=== PATIENT | female | born 2000 | race Two or more races ===

== ENCOUNTER 2020-01-29 12:09 | Emergency (ER) | payer MEDICAID ==
--- NOTE | 2020-01-29 12:49 | EDM.PDOC ---
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 The patient states her LMP was December 22, 2019. Yesterday she took 3 tests and they were all positive. She has been sexually active not on control. Today she would like confirmation of . She also reports that she has been having "period cramping" more intense than usual off and on. No vaginal bleeding, pelvic pain or abdominal pain. Mild nausea but no vomiting. No fever, dysuria. She is otherwise healthy without chronic medical problems. She has never been before. pelvic Pain Score (Numeric/FACES): 7 - Related Data Allergies Allergy/AdvReac Type Severity Reaction Status Date / Time No Known Allergies Allergy Verified 01/29/20 12:24 Home Meds: Home Meds . [No Known Home Meds] 01/29/20 [History] Past Medical History - Past Health History Medical/Surgical History: Denies Medical/Surgical History - Infectious Disease History Infectious Disease History: Reports: None Social & Family History - Family History Family Medical History: Noncontributory - Tobacco Use Tobacco Use Status *Q: Never Tobacco User - Recreational Drug Use Recreational Drug Use: No ED ROS GENERAL - Review of Systems Review Of Systems: Comprehensive ROS is negative, except as noted in HPI. ED EXAM - Physical Exam Exam: See Below Exam Limited By: No Limitations General Appearance: Alert, No Apparent Distress Ears: Normal External Exam Nose: Normal Inspection Throat/Mouth: Normal Inspection Head: Atraumatic, Normocephalic Neck: Normal Inspection Respiratory/Chest: No Respiratory Distress, Lungs Clear, Normal Breath Sounds Cardiovascular: Normal Peripheral Pulses, Regular Rate, Rhythm GI/Abdominal Exam: Normal Bowel Sounds, Soft, No Distention, Tender (Mild in pelvic and epigastric area) Course - Vital Signs Last Recorded V/S: Last Vital Signs Temp Pulse 122 H 01/29/20 12:25 Resp 18 01/29/20 12:25 BP 129/74 01/29/20 12:25 Pulse Ox 100 01/29/20 12:25 - Orders/Labs/Meds Labs: Laboratory Tests 01/29/20 01/29/20 Range/Units 12:43 12:43 Urine Color YELLOW Urine Appearance CLEAR Urine pH 8.0 (5.0-8.0) Ur Specific [place] 1.020 (1.001-1.035) Urine Protein NEGATIVE (NEGATIVE) mg/dL Urine Glucose (UA) NEGATIVE (NEGATIVE) mg/dL Urine Ketones NEGATIVE (NEGATIVE) mg/dL Urine Occult Blood NEGATIVE (NEGATIVE) Urine Nitrite NEGATIVE (NEGATIVE) Urine Bilirubin NEGATIVE (NEGATIVE) Urine Urobilinogen 0.2 (<2.0) EU/dL Ur Leukocyte Esterase NEGATIVE (NEGATIVE) Urine RBC 0-2 (0-2/HPF) Urine WBC 0-2 (0-5/HPF) Ur Epithelial Cells OCCASIONAL (NONE-FEW) Urine Bacteria RARE (NEGATIVE) Urine HCG, Qual POSITIVE (NEGATIVE) - Re-Assessments/Exams Free Text/Narrative Re-Assessment/Exam: 01/29/20 13:27 Now, the patient states that she is not having cramping all the time just once in a while she gets a cramp. Departure - Departure Time of Disposition: 13:28 Disposition: Home, Self-Care 01 Condition: Good Clinical Impression: confirmed by positive urine test - Discharge Information Referrals: PCP,None [Primary Care Provider] - [facility] [Outside] Didier Diego MD [Physician] - Forms: ED Department Discharge Additional Instructions: The following information is given to patients seen in the emergency department who are being discharged to home. This information is to outline your options for follow-up care. We provide all patients seen in our emergency department with a follow-up referral. The need for follow-up, as well as the timing and circumstances, are variable depending upon the specifics of your emergency department visit. If you don't have a primary care physician on staff, we will provide you with a referral. We always advise you to contact your personal physician following an emergency department visit to inform them of the circumstance of the visit and for follow-up with them and/or the need for any referrals to a consulting specialist. The emergency department will also refer you to a specialist when appropriate. This referral assures that you have the opportunity for follow-up care with a specialist. All of these measure are taken in an effort to provide you with optimal care, which includes your follow-up. Under all circumstances we always encourage you to contact your private physician who remains a resource for coordinating your care. When calling for follow-up care, please make the office aware that this follow-up is from your recent emergency room visit. If for any reason you are refused follow-up, please contact the [facility] Emergency Department at and asked to speak to the emergency department charge nurse. 1. If you experience vaginal bleeding along with pelvic pain, report to the emergency room promptly 2. Make an appointment for care with one of the providers listed above. Sepsis Event Note (ED) - Evaluation Sepsis Screening Result: No Definite Risk - Focused Exam Vital Signs: Vital Signs Pulse Resp BP Pulse Ox 01/29/20 12:25 122 H 18 129/74 100
== END 2020-01-29 13:45 | disposition home or self-care (01) ==
LOC: MW.ED 12:09
DX: Z32.01 Encounter for pregnancy test, result positive (principal)
CPT/HCPCS: 81001; 81025; 99282; 99284

== ENCOUNTER 2020-09-22 13:24 | Inpatient (IN) | payer MEDICAID ==
[2020-09-22] MEDS ORDERED: Sodium Chloride 0.9% 10 ML Syringe FLUSH PRN (14:22)
[2020-09-22] MEDS ORDERED: Nalbuphine 10 MG/1 ML Vial IVPUSH PRN (14:22)
[2020-09-22] MEDS ORDERED: Tranexamic Acid 1,000 MG in Sodium Chloride 0.9% 100 ML IV PRN (14:22)
[2020-09-22] MEDS ORDERED: Sodium Chloride 0.9% 10 ML SDV IV PRN (14:22)
[2020-09-22] MEDS ORDERED: Lidocaine 1% 50 ML MDV INJECT PRN (14:22)
[2020-09-22] MEDS ORDERED: Methylergonovine 0.2 MG/1 ML Amp IM PRN (14:22)
[2020-09-22] MEDS ORDERED: Ampicillin 2 GM in Sodium Chloride 0.9% 100 ML IV ONE (14:22)
[2020-09-22] MEDS ORDERED: Misoprostol 200 MCG Tab PO PRN (14:22)
[2020-09-22] MEDS ORDERED: Sodium Chloride 0.9% 2.5 ML Syringe FLUSH PRN (14:22)
[2020-09-22] MEDS ORDERED: Carboprost Tromethamine 250 MCG/1 ML Amp IM PRN (14:22)
[2020-09-22] MEDS ORDERED: Butorphanol 1 MG/ML SDV IVPUSH PRN (14:22)
[2020-09-22] MEDS ORDERED: Water For Irrigation,Sterile 1,000 ML Container IRR PRN (14:22)
[2020-09-22] MEDS ORDERED: Oxytocin/0.9 % Sodium Chloride 30 UNIT/500 ML BAG IV SCH (14:30)
[2020-09-22] MEDS: Lactated Ringers 1,000 ML IV SCH ×2 (14:45→17:31)
[2020-09-22] MEDS ORDERED: Ampicillin 2 GM Vial ONE (14:49)
[2020-09-22] MEDS ORDERED: fentaNYL 100 MCG/2 ML SDV ONE (15:55)
[2020-09-22] MEDS ORDERED: Ropivacaine HCl/PF 200 ML ONE (15:55)
--- NOTE | 2020-09-22 16:19 | PCM.PREANE ---
Preanesthetic Assessment - Anesthesia/Transfusion/Family Hx Anesthesia History: No Prior Anesthesia Family History of Anesthesia Reaction: No - Physical Assessment NPO Status Date: 09/22/20 NPO Status Time: 11:00 Height: 1.61 m Weight: 58.06 kg ASA Class: 2 - Lab Values: Laboratory Last Values WBC 14.31 K/uL (4.0-11.0) H 09/22/20 14:30 RBC 4.18 M/uL (4.30-5.90) L 09/22/20 14:30 Hgb 12.4 g/dL (12.0-16.0) 09/22/20 14:30 Hct 37.0 % (36.0-46.0) 09/22/20 14:30 MCV 88.5 fL (80.0-98.0) 09/22/20 14:30 MCH 29.7 pg (27.0-32.0) 09/22/20 14:30 MCHC 33.5 g/dL (31.0-37.0) 09/22/20 14:30 RDW Std Deviation 44.3 fl (28.0-62.0) 09/22/20 14:30 RDW Coeff of Abner 14 % (11.0-15.0) 09/22/20 14:30 Plt Count 315 K/uL (150-400) 09/22/20 14:30 MPV 10.60 fL (7.40-12.00) 09/22/20 14:30 Nucleated RBC % 0.0 /100WBC 09/22/20 14:30 Nucleated RBCs # 0 K/uL 09/22/20 14:30 SARS-CoV-2 RNA (MARYLU) NEGATIVE (NEGATIVE) 09/22/20 14:30 - Allergies Allergies/Adverse Reactions: Allergies Allergy/AdvReac Type Severity Reaction Status Date / Time No Known Allergies Allergy Verified 07/03/20 09:14 - Acknowledgements Anesthesia Type Planned: Epidural Pt an Appropriate Candidate for the Planned Anesthesia: Yes Alternatives and Risks of Anesthesia Discussed w Pt/Guardian: Yes Pt/Guardian Understands and Agrees with Anesthesia Plan: Yes PreAnesthesia Questionnaire - Past Health History Medical/Surgical History: Denies 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 [No Known Home Meds] 01/29/20 [History] Pnv No.95/Ferrous Fum/Folic AC [ Multivitamin Tablet] 1 each PO DAILY 07/02/20 [History] - CURRENT (IN HOUSE) MEDS Current Meds: Current Medications Butorphanol Tartrate (Butorphanol 1 Mg/Ml Sdv) 1 mg IVPUSH Q1H PRN PRN Reason: Pain (severe 7-10) Carboprost Tromethamine (Carboprost Tromethamine 250 Mcg/1 Ml Amp) 250 mcg IM ASDIRECTED PRN PRN Reason: Post Hemorrhage Oxytocin/Sodium Chloride (Oxytocin 30 Unit/500 Ml-Ns) 30 unit in 500 mls @ 500 mls/hr IV TITRATE TRISHA Tranexamic Acid 1,000 mg/ (Sodium Chloride) 110 mls @ 660 mls/hr IV ONETIME PRN PRN Reason: Bleeding Lactated Ringer's (Ringers, Lactated) 1,000 mls @ 150 mls/hr IV ASDIRECTED [facility] Last Infusion: 09/22/20 15:35 Dose: 999 mls/hr Documented by: Lidocaine HCl (Lidocaine 1% 50 Ml Mdv) 50 ml INJECT ONETIME PRN PRN Reason: Laceration repair Methylergonovine Maleate (Methylergonovine 0.2 Mg/1 Ml Amp) 0.2 mg IM ASDIRECTED PRN PRN Reason: Post Hemorrhage Misoprostol (Misoprostol 200 Mcg Tab) 200 mcg PO ONETIME PRN PRN Reason: Post Hemorrhage Nalbuphine HCl (Nalbuphine 10 Mg/1 Ml Vial) 10 mg IVPUSH Q1H PRN PRN Reason: Pain (severe 7-10) Sodium Chloride (Sodium Chloride 0.9% 10 Ml Syringe) 10 ml FLUSH ASDIRECTED PRN PRN Reason: Keep Vein Open Sodium Chloride (Sodium Chloride 0.9% 2.5 Ml Syringe) 2.5 ml FLUSH ASDIRECTED PRN PRN Reason: Keep Vein Open Sodium Chloride (Sodium Chloride 0.9% 10 Ml Sdv) 10 ml IV ASDIRECTED PRN PRN Reason: IV Use Sterile Water (Water For Irrigation,Sterile 1,000 Ml Container) 1,000 ml IRR ASDIRECTED PRN PRN Reason: delivery Discontinued Medications Ampicillin Sodium (Ampicillin 2 Gm Vial) Confirm Administered Dose 2 gm .ROUTE .STK-MED ONE Stop: 09/22/20 14:50 Fentanyl (Fentanyl 100 Mcg/2 Ml Sdv) Confirm Administered Dose 200 mcg .ROUTE .STK-MED ONE Stop: 09/22/20 15:56 Ampicillin Sodium 2 gm/ Sodium (Chloride) 100 mls @ 200 mls/hr IV ONETIME ONE Stop: 09/22/20 14:51 Last Admin: 09/22/20 14:50 Dose: 200 mls/hr Documented by: Ropivacaine (Naropin 0.2%) Confirm Administered Dose 200 mls @ as directed .ROUTE .STK-MED ONE Stop: 09/22/20 15:56
--- NOTE | 2020-09-22 16:23 | PCM.PRNOTE ---
- Free Text/Narrative Note: Anes Note Patient requests epidural fo L&D. Sitting position. Level L3-L4 midline approach. Sterile technique. Chloaprep scrub to lumbar area. Sterile fenestrated drape applied. Epidural space easily achieved single attempt with ease using CANDELARIA technique. CANDELARIA at 3 cm. Cah threaded 5 cm with ease. Cath secured a t skin using sterile clear adhesive dressing. 1610 Test 3 cc 1.5% lido with epi negative. 1614 Load 10 cc 0.2% ropiviciane with 1 mcg cc fentanyl in slow divided doses. 1617 Pump started with 190 cc same solution. Rate is 8 cc hr with 6 cc q 20 min prn bolus. Jimmy well. Time with patient [id number] Frank Kovacs CRNA
[2020-09-22] MEDS ORDERED: Ampicillin 1 GM in Sodium Chloride 0.9% 50 ML IV SCH (19:00)
[2020-09-22] MEDS ORDERED: Docusate Sodium 100 MG Cap PO PRN (20:42)
[2020-09-22] MEDS ORDERED: Witch Hazel Medicated Pads 40/Jar TOP PRN (20:42)
[2020-09-22] MEDS ORDERED: Ibuprofen 400 MG Tab PO PRN (20:42)
[2020-09-22] MEDS ORDERED: Acetaminophen 500 MG Tab PO PRN ×2 (20:42)
[2020-09-22] MEDS ORDERED: Lanolin 100% Cream 7 GM Tube TOP PRN (20:42)
[2020-09-22] MEDS ORDERED: Benzocaine/Menthol 20%-0.5% Spray 78 GM Cannister TOP PRN (20:42)
[2020-09-22] MEDS ORDERED: Bisacodyl 10 MG Supp RECTAL PRN (20:42)
[2020-09-22] MEDS ORDERED: oxyCODONE 5 MG Tab PO PRN (20:42)
--- NOTE | 2020-09-22 20:48 | PCM.DEL ---
L & D Note - General Info Date of Service: 09/22/20 - Delivery Note Delivery Outcome: Livebirth Infant Delivery Method: Spontaneous Vaginal Delivery-Single Presentation: Left Occiput Anterior (VALERIE) Nuchal Cord: None Anesthesia Type: Epidural Amniotic Fluid Description: Clear Episiotomy Type: None Laceration: Labial Suture type: Vicryl Suture size: 3-0 Placenta: Intact Cord: 3 Vessels Estimated Blood Loss: 300 Resuscitation Needed: No Score 1 min: 9 Score 5 min: 9 Delivery Comments (Free Text/Narrative):: Live male delivered at 2003 , 9/9 weight pending - General Info Date of Service: 09/22/20 - Patient Data Weight - Most Recent: 58.06 kg Lab Results Last 24 Hours: Laboratory Results - last 24 hr 09/22/20 09/22/20 09/22/20 Range/Units 14:30 14:30 14:30 WBC 14.31 H (4.0-11.0) K/uL RBC 4.18 L (4.30-5.90) M/uL Hgb 12.4 (12.0-16.0) g/dL Hct 37.0 (36.0-46.0) % MCV 88.5 (80.0-98.0) fL MCH 29.7 (27.0-32.0) pg MCHC 33.5 (31.0-37.0) g/dL RDW Std Deviation 44.3 (28.0-62.0) fl RDW Coeff of Abner 14 (11.0-15.0) % Plt Count 315 (150-400) K/uL MPV 10.60 (7.40-12.00) fL Nucleated RBC % 0.0 /100WBC Nucleated RBCs # 0 K/uL SARS-CoV-2 RNA (MARYLU) NEGATIVE (NEGATIVE) Blood Type O NEGATIVE Antibody Screen POSITIVE Antibody Identification Anti-D Med Orders - Current: Current Medications Butorphanol Tartrate (Butorphanol 1 Mg/Ml Sdv) 1 mg IVPUSH Q1H PRN PRN Reason: Pain (severe 7-10) Carboprost Tromethamine (Carboprost Tromethamine 250 Mcg/1 Ml Amp) 250 mcg IM ASDIRECTED PRN PRN Reason: Post Hemorrhage Oxytocin/Sodium Chloride (Oxytocin 30 Unit/500 Ml-Ns) 30 unit in 500 mls @ 500 mls/hr IV TITRATE [facility] Last Admin: 09/22/20 20:05 Dose: 500 mls/hr Documented by: Lactated Ringer's (Ringers, Lactated) 1,000 mls @ 150 mls/hr IV ASDIRECTED [facility] Last Infusion: 09/22/20 18:00 Dose: 150 mls/hr Documented by: Lidocaine HCl (Lidocaine 1% 50 Ml Mdv) 50 ml INJECT ONETIME PRN PRN Reason: Laceration repair Sodium Chloride (Sodium Chloride 0.9% 10 Ml Syringe) 10 ml FLUSH ASDIRECTED PRN PRN Reason: Keep Vein Open Sodium Chloride (Sodium Chloride 0.9% 2.5 Ml Syringe) 2.5 ml FLUSH ASDIRECTED PRN PRN Reason: Keep Vein Open Sodium Chloride (Sodium Chloride 0.9% 10 Ml Sdv) 10 ml IV ASDIRECTED PRN PRN Reason: IV Use Sterile Water (Water For Irrigation,Sterile 1,000 Ml Container) 1,000 ml IRR ASDIRECTED PRN PRN Reason: delivery Discontinued Medications Ampicillin Sodium (Ampicillin 2 Gm Vial) Confirm Administered Dose 2 gm .ROUTE .STK-MED ONE Stop: 09/22/20 14:50 Fentanyl (Fentanyl 100 Mcg/2 Ml Sdv) Confirm Administered Dose 200 mcg .ROUTE .STK-MED ONE Stop: 09/22/20 15:56 Tranexamic Acid 1,000 mg/ (Sodium Chloride) 110 mls @ 660 mls/hr IV ONETIME PRN PRN Reason: Bleeding Ampicillin Sodium 2 gm/ Sodium (Chloride) 100 mls @ 200 mls/hr IV ONETIME ONE Stop: 09/22/20 14:51 Last Admin: 09/22/20 14:50 Dose: 200 mls/hr Documented by: Ropivacaine (Naropin 0.2%) Confirm Administered Dose 200 mls @ as directed .ROUTE .STK-MED ONE Stop: 09/22/20 15:56 Ampicillin Sodium 1 gm/ Sodium (Chloride) 50 mls @ 100 mls/hr IV Q4H [facility] Last Admin: 09/22/20 18:52 Dose: 100 mls/hr Documented by: Methylergonovine Maleate (Methylergonovine 0.2 Mg/1 Ml Amp) 0.2 mg IM ASDIRECTED PRN PRN Reason: Post Hemorrhage Misoprostol (Misoprostol 200 Mcg Tab) 200 mcg PO ONETIME PRN PRN Reason: Post Hemorrhage Nalbuphine HCl (Nalbuphine 10 Mg/1 Ml Vial) 10 mg IVPUSH Q1H PRN PRN Reason: Pain (severe 7-10) - Problem List & Annotations (1) Vaginal delivery SNOMED Code(s): 690839051 Code(s): O80 - ENCOUNTER FOR FULL-TERM UNCOMPLICATED DELIVERY Status: Acute Current Visit: Yes - Problem List Review Problem List Initiated/Reviewed/Updated: Yes - My Orders Last 24 Hours: My Active Orders 09/22/20 14:22 Patient Status [ADT] Routine May Shower [RC] ASDIRECTED Notify Provider [RC] PRN Up ad Juliana [RC] ASDIRECTED Vaginal Exam [RC] PRN Vital Signs [RC] PER UNIT ROUTINE Butorphanol [Stadol] 1 mg IVPUSH Q1H PRN Carboprost Tromethamine [Hemabate DS] 250 mcg IM ASDIRECTED PRN Lidocaine 1% [Xylocaine 1%] 50 ml INJECT ONETIME PRN Sodium Chloride 0.9% [Normal Saline] 10 ml IV ASDIRECTED PRN Sodium Chloride 0.9% [Saline Flush] 10 ml FLUSH ASDIRECTED PRN Sodium Chloride 0.9% [Saline Flush] 2.5 ml FLUSH ASDIRECTED PRN Water For Irrigation,Sterile [Sterile Water for Irrigation] 1,000 ml IRR ASDIRECTED PRN Peripheral IV Insertion Adult [OM.PC] Routine 09/22/20 14:30 RPR (SYPHILIS SERO) W/ RFLX [REF] Routine Lactated Ringers [Ringers, Lactated] 1,000 ml IV ASDIRECTED Oxytocin/0.9 % Sodium Chloride [Oxytocin 30 Unit/500 ML-NS] 30 unit in 500 ml IV TITRATE 09/22/20 20:42 Patient Status [ADT] Routine May Shower [RC] ASDIRECTED Up ad Juliana [RC] ASDIRECTED Vital Signs [RC] PER UNIT ROUTINE RHIG WORKUP, [BBK] Routine Acetaminophen [Tylenol Extra Strength] 1,000 mg PO Q4H PRN Acetaminophen [Tylenol Extra Strength] 500 mg PO Q4H PRN Benzocaine/Menthol [Dermoplast Pain Relief 20%-0.5% [place]] 78 gm TOP ASDIRECTED PRN Docusate Sodium [Colace] 100 mg PO Q12H PRN Ibuprofen [Motrin] 400 mg PO Q4H PRN Ibuprofen [Motrin] 800 mg PO Q6H PRN Lanolin [Lansinoh HPA] See Dose Instructions TOP ASDIRECTED PRN bisacodyL [Dulcolax] 10 mg RECTAL ONETIME PRN oxyCODONE 5 mg PO Q2H PRN witch Azul [Tucks] 1 pad TOP ASDIRECTED PRN Assess Lochia [WOMSER] Per Unit Routine Assess Uterine Involution [WOMSER] Per Unit Routine Peripheral IV Discontinue [OM.PC] Routine Resuscitation Status Routine 09/23/20 05:11 HEMOGLOBIN/HEMATOCRIT,HH [HEME] Timed - Assessment Assessment:: 20yo P1 s/p PPD0 , GBS positive received ampicillin Rh negative
[2020-09-22] MEDS: Ibuprofen 800 MG Tab PO PRN (23:38)
[2020-09-23] MEDS: Ibuprofen 800 MG Tab PO PRN ×3 (05:59→23:28)
--- NOTE | 2020-09-23 07:01 | PCM48HPAN ---
Post Anesthesia Note - EVALUATION WITHIN 48HRS OF ANESTHETIC Vital Signs in Normal Range: Yes Patient Participated in Evaluation: Yes Respiratory Function Stable: Yes Airway Patent: Yes Cardiovascular Function Stable: Yes Hydration Status Stable: Yes Pain Control Satisfactory: Yes Nausea and Vomiting Control Satisfactory: Yes Mental Status Recovered: Yes Vital Signs: Last Vital Signs Temp 36.6 C 09/23/20 04:10 Pulse 93 09/23/20 04:10 Resp 16 09/23/20 04:10 BP 105/67 09/23/20 04:10 Pulse Ox 95 09/23/20 04:10
--- NOTE | 2020-09-23 08:05 | PCM.PNPP ---
- General Info Date of Service: 09/23/20 Admission Dx/Problem (Free Text): Pregnanc Subjective Update: Resting in bed with infant during rounds. Pain well controlled. Ambulating and voiding without difficulty. Lochia decreasing. Tolerating regular diet. Attempting to breastfeed, working on latch. - General Info Date of Service: 09/23/20 - Patient Data Vital Signs - Most Recent: Last Vital Signs Temp 98 F 09/23/20 04:10 Pulse 93 09/23/20 04:10 Resp 16 09/23/20 04:10 BP 105/67 09/23/20 04:10 Pulse Ox 95 09/23/20 04:10 Weight - Most Recent: 128 lb I&O - Last 24 Hours: Intake & Output 09/22/20 09/23/20 09/23/20 22:59 06:59 14:59 Intake Total 2 Balance 2 Lab Results - Last 24 Hours: Laboratory Results - last 24 hr 09/22/20 09/22/20 09/22/20 Range/Units 14:30 14:30 14:30 WBC 14.31 H (4.0-11.0) K/uL RBC 4.18 L (4.30-5.90) M/uL Hgb 12.4 (12.0-16.0) g/dL Hct 37.0 (36.0-46.0) % MCV 88.5 (80.0-98.0) fL MCH 29.7 (27.0-32.0) pg MCHC 33.5 (31.0-37.0) g/dL RDW Std Deviation 44.3 (28.0-62.0) fl RDW Coeff of Abner 14 (11.0-15.0) % Plt Count 315 (150-400) K/uL MPV 10.60 (7.40-12.00) fL Nucleated RBC % 0.0 /100WBC Nucleated RBCs # 0 K/uL Cord ABG pH (7.18-7.38) Cord ABG Base Excess (-10--2) Cord VBG pH (7.25-7.45) Cord VBG Base Excess (-10--2) SARS-CoV-2 RNA (MARYLU) NEGATIVE (NEGATIVE) Blood Type O NEGATIVE Antibody Screen POSITIVE Antibody Identification Anti-D Screen (NEGATIVE) RhIG Candidate? Rhogam Indicated 09/22/20 09/22/20 09/22/20 Range/Units 20:04 20:04 21:03 WBC (4.0-11.0) K/uL RBC (4.30-5.90) M/uL Hgb (12.0-16.0) g/dL Hct (36.0-46.0) % MCV (80.0-98.0) fL MCH (27.0-32.0) pg MCHC (31.0-37.0) g/dL RDW Std Deviation (28.0-62.0) fl RDW Coeff of Abner (11.0-15.0) % Plt Count (150-400) K/uL MPV (7.40-12.00) fL Nucleated RBC % /100WBC Nucleated RBCs # K/uL Cord ABG pH 7.267 (7.18-7.38) Cord ABG Base Excess -4 (-10--2) Cord VBG pH 7.307 (7.25-7.45) Cord VBG Base Excess -4 (-10--2) SARS-CoV-2 RNA (MARYLU) (NEGATIVE) Blood Type Antibody Screen Antibody Identification Screen NEGATIVE (NEGATIVE) RhIG Candidate? YES Rhogam Indicated YES, BABY RH POS H 09/23/20 Range/Units 05:18 WBC (4.0-11.0) K/uL RBC (4.30-5.90) M/uL Hgb 10.7 L (12.0-16.0) g/dL Hct 31.9 L (36.0-46.0) % MCV (80.0-98.0) fL MCH (27.0-32.0) pg MCHC (31.0-37.0) g/dL RDW Std Deviation (28.0-62.0) fl RDW Coeff of Abner (11.0-15.0) % Plt Count (150-400) K/uL MPV (7.40-12.00) fL Nucleated RBC % /100WBC Nucleated RBCs # K/uL Cord ABG pH (7.18-7.38) Cord ABG Base Excess (-10--2) Cord VBG pH (7.25-7.45) Cord VBG Base Excess (-10--2) SARS-CoV-2 RNA (MARYLU) (NEGATIVE) Blood Type Antibody Screen Antibody Identification Screen (NEGATIVE) RhIG Candidate? Rhogam Indicated Med Orders - Current: Current Medications Acetaminophen (Acetaminophen 500 Mg Tab) 500 mg PO Q4H PRN PRN Reason: Pain (mild 1-3) Acetaminophen (Acetaminophen 500 Mg Tab) 1,000 mg PO Q4H PRN PRN Reason: Pain (mild 1-3) Benzocaine/Menthol (Benzocaine/Menthol 20%-0.5% [place] 78 Gm Cannister) 78 gm TOP ASDIRECTED PRN PRN Reason: Perineal Comfort Measure Last Admin: 09/22/20 23:38 Dose: 78 gm Documented by: Bisacodyl (Bisacodyl 10 Mg Supp) 10 mg RECTAL ONETIME PRN PRN Reason: Constipation Butorphanol Tartrate (Butorphanol 1 Mg/Ml Sdv) 1 mg IVPUSH Q1H PRN PRN Reason: Pain (severe 7-10) Carboprost Tromethamine (Carboprost Tromethamine 250 Mcg/1 Ml Amp) 250 mcg IM ASDIRECTED PRN PRN Reason: Post Hemorrhage Docusate Sodium (Docusate Sodium 100 Mg Cap) 100 mg PO Q12H PRN PRN Reason: Constipation Last Admin: 09/22/20 23:38 Dose: 100 mg Documented by: Emollient Ointment (Lanolin 100% Cream 7 Gm Tube) 0 gm TOP ASDIRECTED PRN PRN Reason: Sore Nipples Last Admin: 09/22/20 23:37 Dose: 7 gm Documented by: Oxytocin/Sodium Chloride (Oxytocin 30 Unit/500 Ml-Ns) 30 unit in 500 mls @ 500 mls/hr IV TITRATE [facility] Last Admin: 09/22/20 20:05 Dose: 500 mls/hr Documented by: Lactated Ringer's (Ringers, Lactated) 1,000 mls @ 150 mls/hr IV ASDIRECTED TRIS[facility] Last Infusion: 09/22/20 18:00 Dose: 150 mls/hr Documented by: Ibuprofen (Ibuprofen 400 Mg Tab) 400 mg PO Q4H PRN PRN Reason: Pain (mild 1-3) Ibuprofen (Ibuprofen 800 Mg Tab) 800 mg PO Q6H PRN PRN Reason: Pain (mild 1-3) Last Admin: 09/23/20 05:59 Dose: 800 mg Documented by: Lidocaine HCl (Lidocaine 1% 50 Ml Mdv) 50 ml INJECT ONETIME PRN PRN Reason: Laceration repair Oxycodone HCl (Oxycodone 5 Mg Tab) 5 mg PO Q2H PRN PRN Reason: Pain (severe 7-10) Sodium Chloride (Sodium Chloride 0.9% 10 Ml Syringe) 10 ml FLUSH ASDIRECTED PRN PRN Reason: Keep Vein Open Last Admin: 09/22/20 23:41 Dose: 10 ml Documented by: Sodium Chloride (Sodium Chloride 0.9% 2.5 Ml Syringe) 2.5 ml FLUSH ASDIRECTED PRN PRN Reason: Keep Vein Open Sodium Chloride (Sodium Chloride 0.9% 10 Ml Sdv) 10 ml IV ASDIRECTED PRN PRN Reason: IV Use Sterile Water (Water For Irrigation,Sterile 1,000 Ml Container) 1,000 ml IRR ASDIRECTED PRN PRN Reason: delivery Witch Ирина (Witch Ирина Medicated Pads 40/Jar) 1 pad TOP ASDIRECTED PRN PRN Reason: comfort care Last Admin: 09/22/20 23:38 Dose: 1 pad Documented by: Discontinued Medications Ampicillin Sodium (Ampicillin 2 Gm Vial) Confirm Administered Dose 2 gm .ROUTE .STK-MED ONE Stop: 09/22/20 14:50 Fentanyl (Fentanyl 100 Mcg/2 Ml Sdv) Confirm Administered Dose 200 mcg .ROUTE .STK-MED ONE Stop: 09/22/20 15:56 Tranexamic Acid 1,000 mg/ (Sodium Chloride) 110 mls @ 660 mls/hr IV ONETIME PRN PRN Reason: Bleeding Ampicillin Sodium 2 gm/ Sodium (Chloride) 100 mls @ 200 mls/hr IV ONETIME ONE Stop: 09/22/20 14:51 Last Admin: 09/22/20 14:50 Dose: 200 mls/hr Documented by: Ropivacaine (Naropin 0.2%) Confirm Administered Dose 200 mls @ as directed .ROUTE .STK-MED ONE Stop: 09/22/20 15:56 Ampicillin Sodium 1 gm/ Sodium (Chloride) 50 mls @ 100 mls/hr IV Q4H TRIS[facility] Last Admin: 09/22/20 18:52 Dose: 100 mls/hr Documented by: Methylergonovine Maleate (Methylergonovine 0.2 Mg/1 Ml Amp) 0.2 mg IM ASDIRECTED PRN PRN Reason: Post Hemorrhage Misoprostol (Misoprostol 200 Mcg Tab) 200 mcg PO ONETIME PRN PRN Reason: Post Hemorrhage Nalbuphine HCl (Nalbuphine 10 Mg/1 Ml Vial) 10 mg IVPUSH Q1H PRN PRN Reason: Pain (severe 7-10) - Interaction Infant Disposition, : [place] in Room with Family Interaction: Holding Feeding: Attempted ; Nursed Fair/Poor Support Person: Significant Other - Recovery Exam Fundal Tone: Firm Fundal Level: At Umbilicus Fundal Placement: Midline Lochia Amount: Scant Lochia Color: Rubra/Red Perineum Description: Other (see below) Other Perinuem Description: labial tear repaired Episiotomy/Laceration: Approximated Bladder Status: Voiding Urinary Elimination: Voided - Exam General: Alert Lungs: Normal Respiratory Effort Cardiovascular: Regular Rate GI/Abdominal Exam: Soft, Non-Tender Extremities: Normal Inspection, Normal Range of Motion, Non-Tender, No Pedal Edema Skin: Warm, Dry, Intact Neurological: No New Focal Deficit Psy/Mental Status: Normal Mood - Problem List Review Problem List Initiated/Reviewed/Updated: Yes - Assessment Assessment:: 20yo PPD1s/p PPD0 - Plan Plan:: Routine cares * Rh negative, received Rhogam x3 during due to 1st trimester bleeding * Rubella immune * GBS positive, receive Ampicillin during labor * PO pain medications ordered PRN * Encourage ambulation and fluid intake * Regular diet as tolerated * , nursing assistance PRN Dispo: stable. Anticipate discharge 24-48hrs post delivery pending maternal/ status. Continue cares today.
--- NOTE | 2020-09-24 07:20 | OR ---
SURGEON: TONI JAMES DATE OF PROCEDURE: 09/22/2020 PREOPERATIVE DIAGNOSES: 20-year-old, G1, P0, full-term , in early labor. POSTOPERATIVE DIAGNOSES: 20-year-old, G1, P0, full-term , in early labor; O negative, group B streptococcus positive. PROCEDURE: Normal spontaneous vaginal delivery. ESTIMATED BLOOD LOSS: Two hundred. IV FLUIDS: Pitocin running. NOTES AND FINDINGS: A live male delivered at 20:04. scores are 9 and 9. Weight is 3430 g. Term at 38 weeks 5 days. BRIEF HISTORY ABOUT THE PATIENT: She is a 20-year-old, G1, P0, O negative, received RhoGAM; GBS positive, received ampicillin during labor; came in complaining of contractions. When she came in, she was 4 cm dilated. She was requesting epidural which she got. She received ampicillin. During her labor course, she was noted to have which recovered back to the baseline. Afterwards, she had a normal labor call. She became fully dilated and she was encouraged to push. DESCRIPTION OF PROCEDURE: With good pushing effort which delivered the head, subsequently by the anterior and posterior shoulder. The body of the baby was delivered. Infant was placed on maternal abdomen. Delayed cord clamping was observed and placenta was delivered by controlled cord traction. Perineum was inspected. She was noted to have a right labial laceration which was repaired with 3-0 Vicryl interrupted stitch. Uterus was noted to be contracted after the procedure. She tolerated the procedure well. All instrument and pad counts were correct x2. CIERRA / SHALONDA /[id number]
--- NOTE | 2020-09-24 08:25 | PCM.PNPP ---
- General Info Date of Service: 09/24/20 Admission Dx/Problem (Free Text): Pregnanc Subjective Update: Sitting up in chair nursing during rounds. Pain well controlled. Ambulating and voiding without difficulty. Lochia decreasing. Tolerating regular diet. Attempting to breastfeed, going well. - General Info Date of Service: 09/24/20 - Patient Data Vital Signs - Most Recent: Last Vital Signs Temp 97.3 F 09/24/20 08:00 Pulse 89 09/24/20 08:00 Resp 18 09/24/20 08:00 BP 105/62 09/24/20 08:00 Pulse Ox 98 09/24/20 08:00 Weight - Most Recent: 128 lb Med Orders - Current: Current Medications Acetaminophen (Acetaminophen 500 Mg Tab) 500 mg PO Q4H PRN PRN Reason: Pain (mild 1-3) Acetaminophen (Acetaminophen 500 Mg Tab) 1,000 mg PO Q4H PRN PRN Reason: Pain (mild 1-3) Benzocaine/Menthol (Benzocaine/Menthol 20%-0.5% Norton 78 Gm Cannister) 78 gm TOP ASDIRECTED PRN PRN Reason: Perineal Comfort Measure Last Admin: 09/22/20 23:38 Dose: 78 gm Documented by: Bisacodyl (Bisacodyl 10 Mg Supp) 10 mg RECTAL ONETIME PRN PRN Reason: Constipation Butorphanol Tartrate (Butorphanol 1 Mg/Ml Sdv) 1 mg IVPUSH Q1H PRN PRN Reason: Pain (severe 7-10) Carboprost Tromethamine (Carboprost Tromethamine 250 Mcg/1 Ml Amp) 250 mcg IM ASDIRECTED PRN PRN Reason: Post Hemorrhage Docusate Sodium (Docusate Sodium 100 Mg Cap) 100 mg PO Q12H PRN PRN Reason: Constipation Last Admin: 09/22/20 23:38 Dose: 100 mg Documented by: Emollient Ointment (Lanolin 100% Cream 7 Gm Tube) 0 gm TOP ASDIRECTED PRN PRN Reason: Sore Nipples Last Admin: 09/22/20 23:37 Dose: 7 gm Documented by: Oxytocin/Sodium Chloride (Oxytocin 30 Unit/500 Ml-Ns) 30 unit in 500 mls @ 500 mls/hr IV TITRATE TRISHA Last Admin: 09/22/20 20:05 Dose: 500 mls/hr Documented by: Lactated Ringer's (Ringers, Lactated) 1,000 mls @ 150 mls/hr IV ASDIRECTED TRISHA Last Infusion: 09/22/20 18:00 Dose: 150 mls/hr Documented by: Ibuprofen (Ibuprofen 400 Mg Tab) 400 mg PO Q4H PRN PRN Reason: Pain (mild 1-3) Ibuprofen (Ibuprofen 800 Mg Tab) 800 mg PO Q6H PRN PRN Reason: Pain (mild 1-3) Last Admin: 09/23/20 23:28 Dose: 800 mg Documented by: Lidocaine HCl (Lidocaine 1% 50 Ml Mdv) 50 ml INJECT ONETIME PRN PRN Reason: Laceration repair Oxycodone HCl (Oxycodone 5 Mg Tab) 5 mg PO Q2H PRN PRN Reason: Pain (severe 7-10) Sodium Chloride (Sodium Chloride 0.9% 10 Ml Syringe) 10 ml FLUSH ASDIRECTED PRN PRN Reason: Keep Vein Open Last Admin: 09/22/20 23:41 Dose: 10 ml Documented by: Sodium Chloride (Sodium Chloride 0.9% 2.5 Ml Syringe) 2.5 ml FLUSH ASDIRECTED PRN PRN Reason: Keep Vein Open Sodium Chloride (Sodium Chloride 0.9% 10 Ml Sdv) 10 ml IV ASDIRECTED PRN PRN Reason: IV Use Sterile Water (Water For Irrigation,Sterile 1,000 Ml Container) 1,000 ml IRR ASDIRECTED PRN PRN Reason: delivery Witch Ирина (Witch Ирина Medicated Pads 40/Jar) 1 pad TOP ASDIRECTED PRN PRN Reason: comfort care Last Admin: 09/22/20 23:38 Dose: 1 pad Documented by: Discontinued Medications Ampicillin Sodium (Ampicillin 2 Gm Vial) Confirm Administered Dose 2 gm .ROUTE .STK-MED ONE Stop: 09/22/20 14:50 Last Admin: 09/23/20 10:24 Dose: Not Given Documented by: Fentanyl (Fentanyl 100 Mcg/2 Ml Sdv) Confirm Administered Dose 200 mcg .ROUTE .STK-MED ONE Stop: 09/22/20 15:56 Last Admin: 09/23/20 10:24 Dose: Not Given Documented by: Tranexamic Acid 1,000 mg/ (Sodium Chloride) 110 mls @ 660 mls/hr IV ONETIME PRN PRN Reason: Bleeding Ampicillin Sodium 2 gm/ Sodium (Chloride) 100 mls @ 200 mls/hr IV ONETIME ONE Stop: 09/22/20 14:51 Last Admin: 09/22/20 14:50 Dose: 200 mls/hr Documented by: Ropivacaine (Naropin 0.2%) Confirm Administered Dose 200 mls @ as directed .ROUTE .STK-MED ONE Stop: 09/22/20 15:56 Last Admin: 09/23/20 10:24 Dose: Not Given Documented by: Ampicillin Sodium 1 gm/ Sodium (Chloride) 50 mls @ 100 mls/hr IV Q4H TRISHA Last Admin: 09/22/20 18:52 Dose: 100 mls/hr Documented by: Methylergonovine Maleate (Methylergonovine 0.2 Mg/1 Ml Amp) 0.2 mg IM ASDIRECTED PRN PRN Reason: Post Hemorrhage Misoprostol (Misoprostol 200 Mcg Tab) 200 mcg PO ONETIME PRN PRN Reason: Post Hemorrhage Nalbuphine HCl (Nalbuphine 10 Mg/1 Ml Vial) 10 mg IVPUSH Q1H PRN PRN Reason: Pain (severe 7-10) - Interaction Disposition, : in Room with Family Interaction: Holding Infant Feeding: Attempted ; Nursed Fair/Poor Support Person: Significant Other - Recovery Exam Fundal Tone: Firm Fundal Level: 1 Fingerbreadths Below Umbilicus Fundal Placement: Midline Lochia Amount: Scant Lochia Color: Rubra/Red Perineum Description: Intact, Minimal Bruising/Swelling Other Perinuem Description: labial tear repaired Episiotomy/Laceration: None Bladder Status: Voiding Urinary Elimination: Voided - Exam General: Alert Lungs: Normal Respiratory Effort Cardiovascular: Regular Rate GI/Abdominal Exam: Soft Extremities: Normal Range of Motion, Non-Tender, No Pedal Edema Skin: Warm, Dry, Intact Neurological: No New Focal Deficit Psy/Mental Status: Normal Mood - Problem List Review Problem List Initiated/Reviewed/Updated: Yes - Assessment Assessment:: 20yo PPD2 s/p - Plan Plan:: Routine cares * Rh negative, received Rhogam x3 during due to 1st trimester bleeding * Rubella immune * GBS positive, receive Ampicillin during labor * PO pain medications ordered PRN * Encourage ambulation and fluid intake * Regular diet as tolerated * , nursing assistance PRN * Dispo: stable. Anticipate discharge today pending maternal/infant status. Rx for breast pump provided and discharge instructions reviewed. Patient to return to clinic in 4 weeks for PPV.
== END 2020-09-24 14:30 | disposition home or self-care (01) | DRG 807 ==
LOC: MW.OBCHECK 13:24 → MW.OB 13:38 → MW.OBCHECK 14:21 → MW.OB 14:22 → OBSVTOIN 20:04 → MW.OB 09-23 00:18
PROVIDERS: ADMIT Obstetrics & Gynecology; ATTEND Obstetrics & Gynecology
PROC: 10E0XZZ Delivery of Products of Conception, External Approach (ICD-10-PCS; principal; 2020-09-22)
PROC: 10907ZC Drainage of Amniotic Fluid, Therapeutic from Products of Conception, Via Natural or Artificial Opening (ICD-10-PCS; 2020-09-22)
PROC: 4A1HXCZ Monitoring of Products of Conception, Cardiac Rate, External Approach (ICD-10-PCS; 2020-09-22)
DX: O99.824 Streptococcus B carrier state complicating childbirth (principal); Z37.0 Single live birth; Z3A.38 38 weeks gestation of pregnancy
CPT/HCPCS: 01967; 36415; 59025; 59409; 82803; 85014; 85018; 85027; 85460; 86592; 86850; 86870; 86900; 86901; A9270-GY; J0290; J2590; J2790; J3010; J7120; U0002

== ENCOUNTER 2020-12-08 10:30 | Emergency (ER) | payer MEDICAID ==
--- NOTE | 2020-12-08 11:01 | EDM.PDOC ---
ED HPI GENERAL MEDICAL PROBLEM - General Chief Complaint: Respiratory Problem Stated Complaint: SORE THROAT, COUGH, HEADACHE Time Seen by Provider: 12/08/20 10:46 - History of Present Illness INITIAL COMMENTS - FREE TEXT/NARRATIVE: Patient presents with cough and headache and sore throat 4 days in duration. No fevers. Patient received 1 dose of the Covid vaccine. Moderate symptoms. No exacerbating or alleviating factors. No shortness of breath or productive sputum head pain Pain Score (Numeric/FACES): 4 - Related Data Allergies Allergy/AdvReac Type Severity Reaction Status Date / Time No Known Allergies Allergy Verified 12/08/20 10:57 Home Meds: Home Meds . [No Known Home Meds] 01/29/20 [History] Pnv No.95/Ferrous Fum/Folic AC [ Multivitamin Tablet] 1 each PO DAILY 07/02/20 [History] Past Medical History - Past Health History Medical/Surgical History: Denies Medical/Surgical History [employer] History: Reports: - Infectious Disease History Infectious Disease History: Reports: None Social & Family History - Family History Family Medical History: No Pertinent Family History - Caffeine Use Caffeine Use: Reports: None ED ROS GENERAL - Review of Systems Review Of Systems: See Below Constitutional: Denies: Fever HEENT: Reports: Other (Sore throat and headache) Respiratory: Reports: Cough. Denies: Shortness of Breath Cardiovascular: Denies: Chest Pain GI/Abdominal: Denies: Abdominal Pain, Diarrhea, Vomiting : Reports: No Symptoms Musculoskeletal: Reports: No Symptoms Skin: Denies: Rash Neurological: Reports: No Symptoms ED EXAM, GENERAL - Physical Exam Exam: See Below Free Text/Narrative:: CONSTITUTIONAL: well appearing in no acute distress SKIN: Warm, dry, and intact without rash HENT: Normocephalic, atraumatic, PULMONARY: clear to ausculation bilaterally. No rales, rhonchi, wheezing CARDIOVASCULAR: regular rate, No murmur, rubs, or gallops GASTROINTESTINAL: soft, nondistended, nontender NEUROLOGIC: normal speech, motor and sensory function grossly intact MUSCULOSKELETAL: no gross deformities, atraumatic PSYCHIATRIC: normal mood and affect Course - Vital Signs Text/Narrative:: Differential diagnosis: Influenza, Covid, viral syndrome, other. Supportive treatment with return precautions and pcp followup. Last Recorded V/S: Last Vital Signs Temp 36.7 C 12/08/20 10:57 Pulse 76 12/08/20 13:01 Resp BP 114/70 12/08/20 13:01 Pulse Ox 98 12/08/20 13:01 - Orders/Labs/Meds Orders: Active Orders 24 hr Category Date Time Status Isolation [COMM] Routine Oth 12/08/20 10:57 Active Labs: Laboratory Tests 12/08/20 Range/Units 11:05 SARS-CoV-2 RNA (MARYLU) NEGATIVE (NEGATIVE) Departure - Departure Time of Disposition: 12:44 Disposition: Home, Self-Care 01 Condition: Good Clinical Impression: Viral illness - Discharge Information Instructions: Viral Illness, Adult Referrals: PCP,None [Primary Care Provider] - Forms: ED Department Discharge Additional Instructions: Regresa si te falta el aire o te empeora la condicion. Ve a trisha el doctor regular en 3-5 huff para un reviso (return if you are short of breath or your condition worsens. Follow-up with In 3 to 5 days for reevaluation). The following information is given to patients seen in the emergency department who are being discharged to home. This information is to outline your options for follow-up care. We provide all patients seen in our emergency department with a follow-up referral. The need for follow-up, as well as the timing and circumstances, are variable depending upon the specifics of your emergency department visit. If you don't have a primary care physician on staff, we will provide you with a referral. We always advise you to contact your personal physician following an emergency department visit to inform them of the circumstance of the visit and for follow-up with them and/or the need for any referrals to a consulting specialist. The emergency department will also refer you to a specialist when appropriate. This referral assures that you have the opportunity for follow-up care with a specialist. All of these measure are taken in an effort to provide you with optimal care, which includes your follow-up. Primary care clinics in the area: [facility] [address] [place] [address] [facility] [address] [place] [address] Under all circumstances we always encourage you to contact your private physician who remains a resource for coordinating your care. When calling for follow-up care, please make the office aware that this follow-up is from your recent emergency room visit. If for any reason you are refused follow-up, please contact the [facility] Emergency Department at and asked to speak to the emergency department charge nurse. Sepsis Event Note (ED) - Focused Exam Vital Signs: Vital Signs Temp Pulse BP Pulse Ox 12/08/20 13:01 76 114/70 98 12/08/20 11:04 100/71 12/08/20 10:57 36.7 C 141 H 100 - My Orders Last 24 Hours: My Active Orders 12/08/20 10:57 Isolation [COMM] Routine - Assessment/Plan Last 24 Hours: My Active Orders 12/08/20 10:57 Isolation [COMM] Routine
== END 2020-12-08 13:01 | disposition home or self-care (01) ==
LOC: MW.ED 10:30
DX: B34.9 Viral infection, unspecified (principal); Z20.822 Contact with and (suspected) exposure to COVID-19
CPT/HCPCS: 87804; 99283; U0002